=== PATIENT | male | born 1995 | race Caucasian/White ===

== ENCOUNTER 2024-04-12 18:40 | Emergency (ER) | payer SELFPAY ==
[~2024-04-12] VITALS: Ht 175.3 cm; Wt 75.0 kg
[2024-04-12 18:46] VITALS: O2SAT 96
[2024-04-12 21:01] VITALS: BP 92/71; PULSE 80; RESP 18
== END 2024-04-12 21:03 | disposition home or self-care (01) ==
LOC: ER 18:47
DX: T67.5XXA Heat exhaustion, unspecified, initial encounter (principal); F41.9 Anxiety disorder, unspecified; I10 Essential (primary) hypertension; X58.XXXA Exposure to other specified factors, initial encounter; Y93.89 Activity, other specified; Y92.89 Other specified places as the place of occurrence of the external cause; Y99.8 Other external cause status
CPT/HCPCS: 93005; 99283; Z7610